=== PATIENT | male | born 1995 | race Two or more races ===

== ENCOUNTER → 2020-04-20 | Emergency (ER) | payer OTHER ==
[~2020-04-20] VITALS: Ht 182.9 cm; Wt 70.3 kg
[~2020-04-20] MED LIST: AMOX1TAB5 PO; NAPROXEN SODIU275 MG PO; SERTRALINE HCL100 MG
== END | disposition home or self-care (01) ==
LOC: ER 13:18
DX: S01.82XA Laceration with foreign body of other part of head, initial encounter (principal); W22.8XXA Striking against or struck by other objects, initial encounter; Y93.89 Activity, other specified; Y92.018 Other place in single-family (private) house as the place of occurrence of the external cause; Y99.8 Other external cause status